=== PATIENT | male | born 1960 ===

== ENCOUNTER 2017-06-25 15:00 | Inpatient (IN) | payer OTHER ==
[~2017-06-25] VITALS: Ht 190.5 cm; Wt 108.2 kg
[2017-06-25] VITALS (8 sets, daily range): BP systolic 112–168; BP diastolic 74–114
[2017-06-25 15:47] LABS: BASOPHILS % (AUTO) 0.3 % (0-1); EOSINOPHILS # (AUTO) 0.1 X10'3 (0-0.9); EOSINOPHILS % (AUTO) 1.1 % (0-6); HEMATOCRIT 38.6 % (42.0-52.0); HEMOGLOBIN 12.6 g/dl (14.0-17.9); LYMPHOCYTES # (AUTO) 3.7 X10'3 (1.1-4.8); MEAN CORPUSCULAR HEMOGLOBIN 29.4 PG (27.0-31.0); MEAN CORPUSCULAR HGB CONC 32.6 % (33.0-36.5); MEAN CORPUSCULAR VOLUME 90.4 FL (78-98); MEAN PLATELET VOLUME 9.8 FL (7.4-10.4); MONOCYTES # (AUTO) 0.6 X10'3 (0-0.9); MONOCYTES % (AUTO) 4.9 % (2-12); NEUTROPHILS # (AUTO) 8.2 X10'3 (1.8-7.7); NEUTROPHILS % (AUTO) 64.7 % (42-75); PLATELET COUNT 138 X10'3 (140-440); RED BLOOD COUNT 4.28 X10'6 (4.70-6.10); RED CELL DISTRIBUTION WIDTH 14.8 % (11.5-14.5); WHITE BLOOD COUNT 12.8 X10'3 (4.5-11.0)
[2017-06-25 15:55] LABS: INR 1.4 INR; PROTHROMBIN TIME 14.8 SECONDS (9.0-12.0)
[2017-06-25 16:14] LABS: ALANINE AMINOTRANSFERASE 68 U/L (12-78); ALBUMIN 2.4 G/DL (3.4-5.0); ALBUMIN/GLOBULIN RATIO 0.9 (1.1-1.5); ALKALINE PHOSPHATASE 58 IU/L (46-116); ANION GAP 24 (8-16); ASPARTATE AMINO TRANSFERASE 62 U/L (10-37); BILIRUBIN,TOTAL 0.2 MG/DL (0.1-1.0); BLOOD UREA NITROGEN 19 MG/DL (7-18); BUN/CREATININE RATIO 8.2 (5.4-32.0); CALCIUM 10.6 MG/DL (8.5-10.1); CHLORIDE 106 MMOL/L (99-107); CREATININE 2.32 MG/DL (0.60-1.10); GLUCOSE 323 MG/DL (70-104); MAGNESIUM 3.3 MG/DL (1.5-2.4); SODIUM 145 MMOL/L (135-145); TOTAL PROTEIN 5.1 G/DL (6.4-8.2); eGFR 29 ML/MIN
[2017-06-25 16:17] LABS: TOTAL CARBON DIOXIDE 14.6 MMOL/L (24-32)
[2017-06-25 16:18] LABS: POTASSIUM 3.4 MMOL/L (3.5-5.1)
[2017-06-25] MEDS ORDERED: sodium phosphate inj. 15 MMOL in dextrose 5%-water 150 ML IV PRN (16:45)
[2017-06-25] MEDS ORDERED: magnesium 2GM in 50ml NS 50 ML IV PRN (16:45)
[2017-06-25] MEDS ORDERED: potassium Cl 40MEQ/NS 500ml 500 ML IV PRN ×2 (16:45)
[2017-06-25] MEDS ORDERED: sodium phosphate inj. 30 MMOL in dextrose 5%-water 250 ML IV PRN (16:45)
[2017-06-25] MEDS ORDERED: magnesium 4gm in 100ml NS 100 ML IV PRN (16:45)
[2017-06-25] MEDS ORDERED: potassium Cl 40MEQ/250ML bag 250 ML IV PRN ×2 (16:45)
[2017-06-25] MEDS ORDERED: CISatracurium **Bolus** 2 mg/ml inj IV PRN (16:50)
[2017-06-25] MEDS ORDERED: CISatracurium besylate inj. 200 MG in normal saline 250ml IV soln 180 ML IV PRN (16:50)
[2017-06-25] MEDS ORDERED: midazolam 2 mg/2 ml injection IV ONE (17:00)
[2017-06-25] MEDS ORDERED: FENTANYL-0.9 % NACL/PF 100 ML IV PRN (17:00)
[2017-06-25] MEDS ORDERED: midazolam 100mg in NS 100ml 100 ML IV PRN (17:00)
[2017-06-25] MEDS ORDERED: fentaNYL/PF 50MCG/1 ML 2ML syringe IV PRN (17:00)
[2017-06-25] MEDS: K, MAG and/or Phos replacement - Verify level? MC SCH (17:19)
[2017-06-25] MEDS: pantoprazole 40 MG vial IV SCH (17:27)
[2017-06-25 17:40] LABS: ABG BASE EXCESS -7.2 mmol/L (-2.0-3.0); ABG HCO3 18.6 mmol/L (22.0-26.0); ABG OXYGEN SATURATION 99.1 % (95-98); ABG PCO2 (T) 36.8 mmHg (35.0-48.0); ABG PH (T) 7.316 (7.350-7.450); ABG PO2 (T) 209.9 mmHg (83-108); FMetHb 0.3 % (0.3-1.12); FO2Hb 97.8 % (94-100); MINUTE VOLUME 16 L/min; PEEP 5 cm H2O; RESPIRATORY RATE 18 b/min; RESPIRATORY RATE (OBSERVED) 28 b/min; TIDAL VOLUME 450 mL; TOTAL HEMOGLOBIN 16.2 G/dl (14.0-18.0)
[2017-06-25] MEDS ORDERED: morphine 4 MG/ML inj SYRINge IV STA (18:10)
[2017-06-25] MEDS ORDERED: amiodarone 150mg/dext, iso-os 100 ML IV ONE ×2 (18:24→18:30)
[2017-06-25] MEDS ORDERED: amiodarone/D5 360MG/200ML BAG 200 ML IV SCH (18:25)
[2017-06-25] MEDS ORDERED: amiodarone/D5 360MG/200ML BAG 200 ML IV ONE (18:25)
[2017-06-25] MEDS: azithromycin/NS 500mg/250ml 250 ML IV SCH (19:00)
[2017-06-25 19:36] LABS: CLARITY,URINE SLIGHTLY CLOUDY (Clear); COLOR,URINE YELLOW (Yellow); GLUCOSE, URINE NEGATIVE (Neg); KETONES,URINE NEGATIVE (Neg); LEUKOCYTE ESTERASE ,URINE NEGATIVE (Neg); NITRITES, URINE NEGATIVE (Neg); OCCULT BLOOD,URINE LARGE (Neg); PH,URINE 5.5 (4.8-8.0); PROTEIN,URINE 100 mg/dl (Neg); UROBILINOGEN,URINE 0.2 E.U/dL (0.2-1.0)
[2017-06-25 19:43] LABS: UA COLLECTION TYPE FOLEY CATH
[2017-06-25 19:45] LABS: AMORPHOUS URATES 2+; BACTERIA,URINE FEW /HPF (Neg); COARSE GRANULAR CAST 0-3 /LPF (NEGATIVE); SQUAMOUS EPITHELIAL CELL,UR FEW /LPF (FEW); URINE AMPHETAMINE SCREEN POSITIVE (Neg); URINE BARBITUATE SCREEN NEGATIVE (Neg); URINE BENZODIAZEPINES SCREEN POSITIVE (Neg); URINE CANNABINOID SCREEN NEGATIVE (Neg); URINE COCAINE SCREEN NEGATIVE (Neg); URINE METHADONE SCREEN NEGATIVE (Neg); URINE OPIATE SCREEN POSITIVE (Neg); URINE PHENCYCLIDINE SCREEN NEGATIVE (Neg); WBC,URINE NONE SEEN /HPF (0-4)
[2017-06-25] MEDS: CISatracurium besylate inj. 200 MG in dextrose 5%-water 180 ML IV PRN (19:48)
[2017-06-25] MEDS ORDERED: nitroGLYCERIN-Tridil 50MG/D5W 250 ML IV PRN (20:13)
[2017-06-25] MEDS ORDERED: nitroGLYCERIN-Tridil 50MG/D5W 250 ML IV ONE (20:15)
[2017-06-25 21:55] LABS: ABG BASE EXCESS -8.5 mmol/L (-2.0-3.0); ABG OXYGEN SATURATION 94.2 % (95-98); ABG PCO2 (T) 52.9 mmHg (35.0-48.0); ABG PH (T) 7.201 (7.350-7.450); ABG PO2 (T) 73.4 mmHg (83-108); FCOHb 0.7 % (0.5-1.5); FMetHb 0.2 % (0.3-1.12); FO2Hb 93.4 % (94-100); MINUTE VOLUME 7 L/min; PATIENT TEMPERATURE 34.4; PEEP 5 cm H2O; RESPIRATORY RATE 14 b/min; RESPIRATORY RATE (OBSERVED) 14 b/min; TIDAL VOLUME 450 mL; TOTAL HEMOGLOBIN 16.2 G/dl (14.0-18.0)
[2017-06-25 22:11] LABS: ALBUMIN 3.3 G/DL (3.4-5.0); ANION GAP 12 (8-16); BLOOD UREA NITROGEN 25 MG/DL (7-18); BUN/CREATININE RATIO 16.2 (5.4-32.0); CALCIUM 8.7 MG/DL (8.5-10.1); CHLORIDE 107 MMOL/L (99-107); CREATININE 1.54 MG/DL (0.60-1.10); GLUCOSE 189 MG/DL (70-104); MAGNESIUM 2.6 MG/DL (1.5-2.4); PHOSPHORUS 6.3 MG/DL (2.3-4.5); POTASSIUM 3.7 MMOL/L (3.5-5.1); SODIUM 143 MMOL/L (135-145); TOTAL CARBON DIOXIDE 23.7 MMOL/L (24-32); eGFR 47 ML/MIN
[2017-06-25] MEDS ORDERED: insulin R INFUSION 1 ML IV ONE (22:50)
[2017-06-25] MEDS ORDERED: potassium Cl 40MEQ/250ML bag 250 ML IV ONE (22:50)
[2017-06-25] MEDS ORDERED: DOPamine 400mg/D5W 250ml 250 ML IV PRN (23:10)
[2017-06-25] MEDS ORDERED: DOBUTamine-DoBUTrex 500mg/D5W 250 ML IV PRN (23:10)
[2017-06-25] MEDS: mineral oil/petrolatum ophthal oint OP SCH (23:17)
[2017-06-25] MEDS ORDERED: DOBUTamine-DoBUTrex 500mg/D5W 250 ML IV ONE (23:17)
[2017-06-25] MEDS ORDERED: DOPamine 400mg/D5W 250ml 250 ML IV ONE (23:17)
[2017-06-26] VITALS (25 sets, daily range): BP systolic 61–110; BP diastolic 36–58
[2017-06-26] MEDS ORDERED: amiodarone/D5 360MG/200ML BAG 200 ML IV ONE ×2 (00:24→08:00)
[2017-06-26] MEDS ORDERED: DOBUTamine-DoBUTrex 500mg/D5W 250 ML IV PRN (00:30)
[2017-06-26] MEDS ORDERED: NORepinephrine 8mg/ 250ml NS 250 ML IV ONE (00:35)
[2017-06-26] MEDS: NORepinephrine 8mg/ 250ml NS 250 ML IV PRN ×4 (00:43→21:39)
[2017-06-26] MEDS: mineral oil/petrolatum ophthal oint OP SCH ×4 (00:44→11:05)
[2017-06-26] MEDS: amiodarone/D5 360MG/200ML BAG 200 ML IV SCH ×3 (00:45→21:39)
[2017-06-26 01:11] LABS: ABG BASE EXCESS -12.6 mmol/L (-2.0-3.0); ABG HCO3 17.4 mmol/L (22.0-26.0); ABG OXYGEN SATURATION 83.6 % (95-98); ABG PCO2 (T) 41.4 mmHg (35.0-48.0); ABG PH (T) 7.198 (7.350-7.450); FCOHb 0.6 % (0.5-1.5); FMetHb 0.1 % (0.3-1.12); MINUTE VOLUME 9 L/min; PEEP 5 cm H2O; RESPIRATORY RATE 18 b/min; RESPIRATORY RATE (OBSERVED) 18 b/min; TIDAL VOLUME 450 mL; TOTAL HEMOGLOBIN 15.2 G/dl (14.0-18.0)
[2017-06-26] MEDS ORDERED: sodium bicarbonate (8.4%) 1 mEq/ml syringe ONE ×2 (01:16→05:40)
[2017-06-26] MEDS ORDERED: sodium bicarbonate (8.4%) 1 mEq/ml syringe IV ONE ×2 (01:20→05:30)
[2017-06-26] MEDS ORDERED: dextrose 50%-water 50ml dispensing syringe IV PRN (01:45)
[2017-06-26] MEDS ORDERED: insulin Lispro (HumaLOG) vial - multi-dose SQ PRN (01:45)
[2017-06-26] MEDS: insulin regular, human 100 UNITS in normal saline 100ml IV soln 99 ML IV SCH ×6 (02:21→21:42)
[2017-06-26 03:45] LABS: HEMATOCRIT 41.7 % (42.0-52.0); HEMOGLOBIN 14.1 g/dl (14.0-17.9); MEAN CORPUSCULAR HEMOGLOBIN 30.3 PG (27.0-31.0); MEAN CORPUSCULAR HGB CONC 33.9 % (33.0-36.5); MEAN CORPUSCULAR VOLUME 89.4 FL (78-98); PLATELET COUNT 147 X10'3 (140-440); RED BLOOD COUNT 4.67 X10'6 (4.70-6.10); RED CELL DISTRIBUTION WIDTH 15.2 % (11.5-14.5); WHITE BLOOD COUNT 13.6 X10'3 (4.5-11.0)
[2017-06-26 03:46] LABS: BASOPHILS % (AUTO) 0 % (0-1); EOSINOPHILS # (AUTO) 0.1 X10'3 (0-0.9); EOSINOPHILS % (AUTO) 1.1 % (0-6); LYMPHOCYTES # (AUTO) 0.6 X10'3 (1.1-4.8); LYMPHOCYTES % (AUTO) 4.6 % (21-51); MEAN PLATELET VOLUME 9.6 FL (7.4-10.4); MONOCYTES # (AUTO) 0.3 X10'3 (0-0.9); MONOCYTES % (AUTO) 2.3 % (2-12); NEUTROPHILS # (AUTO) 12.5 X10'3 (1.8-7.7)
[2017-06-26 03:57] LABS: INR 1.5 INR; PARTIAL THROMBOPLASTIN TIME 32 SECONDS (22-32); PROTHROMBIN TIME 15.2 SECONDS (9.0-12.0)
[2017-06-26] MEDS ORDERED: DOPamine 400mg/D5W 250ml 250 ML IV ONE ×5 (04:08→19:55)
[2017-06-26] MEDS: DOBUTamine-DoBUTrex 500mg/D5W 250 ML IV PRN ×3 (04:12→21:38)
[2017-06-26] MEDS: DOPamine 400mg/D5W 250ml 250 ML IV PRN ×4 (04:12→23:19)
[2017-06-26 04:25] LABS: ABG BASE EXCESS -12.8 mmol/L (-2.0-3.0); ABG HCO3 16.8 mmol/L (22.0-26.0); ABG OXYGEN SATURATION 89.1 % (95-98); ABG PCO2 (T) 39.3 mmHg (35.0-48.0); ABG PH (T) 7.206 (7.350-7.450); ABG PO2 (T) 44.3 mmHg (83-108); FCOHb 0.4 % (0.5-1.5); FMetHb 0.1 % (0.3-1.12); FO2Hb 88.7 % (94-100); MINUTE VOLUME 10 L/min; PATIENT TEMPERATURE 30.1; PEEP 5 cm H2O; RESPIRATORY RATE 20 b/min; RESPIRATORY RATE (OBSERVED) 20 b/min; TIDAL VOLUME 450 mL; TOTAL HEMOGLOBIN 14.7 G/dl (14.0-18.0)
[2017-06-26 04:34] LABS: ALANINE AMINOTRANSFERASE 115 U/L (12-78); ALBUMIN 2.7 G/DL (3.4-5.0); ALBUMIN/GLOBULIN RATIO 0.9 (1.1-1.5); ALKALINE PHOSPHATASE 55 IU/L (46-116); ANION GAP 19 (8-16); ASPARTATE AMINO TRANSFERASE 364 U/L (10-37); BILIRUBIN,TOTAL 0.4 MG/DL (0.1-1.0); BLOOD UREA NITROGEN 30 MG/DL (7-18); BUN/CREATININE RATIO 12.9 (5.4-32.0); CALCIUM 8.3 MG/DL (8.5-10.1); CHLORIDE 107 MMOL/L (99-107); CREATININE 2.32 MG/DL (0.60-1.10); GLUCOSE 283 MG/DL (70-104); MAGNESIUM 2.4 MG/DL (1.5-2.4); PHOSPHORUS 5.5 MG/DL (2.3-4.5); SODIUM 145 MMOL/L (135-145); TOTAL CARBON DIOXIDE 18.7 MMOL/L (24-32); TOTAL PROTEIN 5.6 G/DL (6.4-8.2); eGFR 29 ML/MIN
[2017-06-26] MEDS ORDERED: potassium Cl 40MEQ/250ML bag 250 ML IV ONE (05:04)
[2017-06-26 05:25] LABS: CKMB RELATIVE INDEX 23.9 RATIO (0-2.5); CREATINE KINASE 3049 U/L (39-308)
[2017-06-26] MEDS: methylPREDNISolone sod succ 125mg/2ml vial IV SCH ×4 (06:32→23:23)
[2017-06-26] MEDS: azithromycin/NS 500mg/250ml 250 ML IV SCH (07:36)
[2017-06-26] MEDS: K, MAG and/or Phos replacement - Verify level? MC SCH (07:37)
[2017-06-26] MEDS: pantoprazole 40 MG vial IV SCH (07:37)
[2017-06-26] MEDS ORDERED: aspirin 81mg tab.chew NG SCH (08:30)
[2017-06-26] MEDS ORDERED: NO HOME MEDS (08:50)
[2017-06-26 11:36] LABS: ABG BASE EXCESS -10.3 mmol/L (-2.0-3.0); ABG HCO3 18.6 mmol/L (22.0-26.0); ABG OXYGEN SATURATION 96.8 % (95-98); ABG PCO2 (T) 52.7 mmHg (35.0-48.0); ABG PH (T) 7.165 (7.350-7.450); ABG PO2 (T) 104.6 mmHg (83-108); FCOHb 0.1 % (0.5-1.5); FMetHb 0.1 % (0.3-1.12); FO2Hb 96.6 % (94-100); MINUTE VOLUME 10 L/min; PEEP 8 cm H2O; RESPIRATORY RATE 20 b/min; RESPIRATORY RATE (OBSERVED) 20 b/min; TIDAL VOLUME 450 mL; TOTAL HEMOGLOBIN 14.7 G/dl (14.0-18.0)
[2017-06-26 11:36] LABS: OXYGEN SATURATION (MIXED VEN) 85.2 % (60-80)
[2017-06-26 12:29] LABS: BASOPHILS % (AUTO) 0 % (0-1); EOSINOPHILS # (AUTO) 0.1 X10'3 (0-0.9); EOSINOPHILS % (AUTO) 1.1 % (0-6); HEMATOCRIT 42.8 % (42.0-52.0); HEMOGLOBIN 14.2 g/dl (14.0-17.9); LYMPHOCYTES # (AUTO) 0.5 X10'3 (1.1-4.8); LYMPHOCYTES % (AUTO) 5.5 % (21-51); MEAN CORPUSCULAR HEMOGLOBIN 29.7 PG (27.0-31.0); MEAN CORPUSCULAR VOLUME 89.8 FL (78-98); MEAN PLATELET VOLUME 9.7 FL (7.4-10.4); MONOCYTES # (AUTO) 0.3 X10'3 (0-0.9); MONOCYTES % (AUTO) 3.4 % (2-12); NEUTROPHILS # (AUTO) 8.3 X10'3 (1.8-7.7); PLATELET COUNT 131 X10'3 (140-440); RED BLOOD COUNT 4.77 X10'6 (4.70-6.10); RED CELL DISTRIBUTION WIDTH 14.8 % (11.5-14.5); WHITE BLOOD COUNT 9.2 X10'3 (4.5-11.0)
[2017-06-26] MEDS ORDERED: vasopressin inj. 60 UNIT in normal saline 100ml IV soln 97 ML IV SCH (12:50)
[2017-06-26 12:56] LABS: ALANINE AMINOTRANSFERASE 121 U/L (12-78); ALBUMIN 2.5 G/DL (3.4-5.0); ALBUMIN/GLOBULIN RATIO 0.9 (1.1-1.5); ALKALINE PHOSPHATASE 52 IU/L (46-116); ANION GAP 18 (8-16); ASPARTATE AMINO TRANSFERASE 418 U/L (10-37); BILIRUBIN,TOTAL 0.5 MG/DL (0.1-1.0); BLOOD UREA NITROGEN 35 MG/DL (7-18); BUN/CREATININE RATIO 14.1 (5.4-32.0); CALCIUM 7.5 MG/DL (8.5-10.1); CHLORIDE 107 MMOL/L (99-107); CREATININE 2.49 MG/DL (0.60-1.10); GLUCOSE 159 MG/DL (70-104); MAGNESIUM 2.3 MG/DL (1.5-2.4); SODIUM 144 MMOL/L (135-145); TOTAL PROTEIN 5.3 G/DL (6.4-8.2); eGFR 27 ML/MIN
[2017-06-26 12:58] LABS: INR 1.3 INR; PROTHROMBIN TIME 13.7 SECONDS (9.0-12.0)
[2017-06-26 12:59] LABS: POTASSIUM 2.5 MMOL/L (3.5-5.1)
[2017-06-26 13:09] LABS: PARTIAL THROMBOPLASTIN TIME 87 SECONDS (22-32)
[2017-06-26] MEDS: CISatracurium besylate inj. 200 MG in dextrose 5%-water 180 ML IV PRN (15:22)
[2017-06-26] MEDS: normal saline 1000ml 1,000 ML IV SCH ×2 (17:29→23:19)
[2017-06-26 17:51] LABS: ABG BASE EXCESS -11.6 mmol/L (-2.0-3.0); ABG HCO3 16.8 mmol/L (22.0-26.0); ABG OXYGEN SATURATION 91.5 % (95-98); ABG PCO2 (T) 34.8 mmHg (35.0-48.0); ABG PO2 (T) 42.9 mmHg (83-108); FCOHb 0.2 % (0.5-1.5); FMetHb 0.1 % (0.3-1.12); FO2Hb 91.2 % (94-100); MINUTE VOLUME 12 L/min; PEEP 8 cm H2O; RESPIRATORY RATE 24 b/min; RESPIRATORY RATE (OBSERVED) 24 b/min; TIDAL VOLUME 450 mL; TOTAL HEMOGLOBIN 14.3 G/dl (14.0-18.0)
[2017-06-26 17:56] LABS: OXYGEN SATURATION (MIXED VEN) 74.4 % (60-80); PO2 MIXED VENOUS (TEMP COR) 26.2 mmHg (35-46)
[2017-06-26 19:38] LABS: INR 1.2 INR; PROTHROMBIN TIME 12.6 SECONDS (9.0-12.0)
[2017-06-26] MEDS: mineral oil/petrolatum ophthal oint EACHEYE SCH (20:05)
[2017-06-26 20:16] LABS: ALANINE AMINOTRANSFERASE 123 U/L (12-78); ALBUMIN 2.4 G/DL (3.4-5.0); ALBUMIN/GLOBULIN RATIO 0.9 (1.1-1.5); ALKALINE PHOSPHATASE 50 IU/L (46-116); ANION GAP 16 (8-16); ASPARTATE AMINO TRANSFERASE 423 U/L (10-37); BILIRUBIN,TOTAL 0.5 MG/DL (0.1-1.0); BLOOD UREA NITROGEN 35 MG/DL (7-18); BUN/CREATININE RATIO 13.8 (5.4-32.0); CALCIUM 7.5 MG/DL (8.5-10.1); CHLORIDE 107 MMOL/L (99-107); CREATININE 2.54 MG/DL (0.60-1.10); GLUCOSE 197 MG/DL (70-104); MAGNESIUM 1.9 MG/DL (1.5-2.4); SODIUM 142 MMOL/L (135-145); TOTAL CARBON DIOXIDE 19.1 MMOL/L (24-32); TOTAL PROTEIN 5.1 G/DL (6.4-8.2); eGFR 27 ML/MIN
[2017-06-26 20:18] LABS: CKMB RELATIVE INDEX 34.1 RATIO (0-2.5); CREATINE KINASE 3415 U/L (39-308)
[2017-06-26 20:25] LABS: PARTIAL THROMBOPLASTIN TIME 86 SECONDS (22-32)
[2017-06-26 21:01] LABS: POTASSIUM 2.4 MMOL/L (3.5-5.1)
[2017-06-26 21:02] LABS: TROPONIN I 35.45 NG/ML (0.0-0.05)
[2017-06-27] VITALS (9 sets, daily range): BP systolic 73–107; BP diastolic 43–56
[2017-06-27 01:35] LABS: ABG BASE EXCESS -6.6 mmol/L (-2.0-3.0); ABG HCO3 20.9 mmol/L (22.0-26.0); ABG OXYGEN SATURATION 90.9 % (95-98); ABG PCO2 (T) 39.6 mmHg (35.0-48.0); ABG PH (T) 7.313 (7.350-7.450); ABG PO2 (T) 44.5 mmHg (83-108); FCOHb 0.1 % (0.5-1.5); FMetHb 0.1 % (0.3-1.12); FO2Hb 90.7 % (94-100); MINUTE VOLUME 11 L/min; PATIENT TEMPERATURE 32.1; PEEP 8 cm H2O; RESPIRATORY RATE 24 b/min; RESPIRATORY RATE (OBSERVED) 24 b/min; TIDAL VOLUME 450 mL; TOTAL HEMOGLOBIN 14.5 G/dl (14.0-18.0)
[2017-06-27] MEDS: mineral oil/petrolatum ophthal oint EACHEYE SCH (02:16)
[2017-06-27 02:47] LABS: BASOPHILS % (AUTO) 0.3 % (0-1); EOSINOPHILS % (AUTO) 0 % (0-6); HEMOGLOBIN 13.5 g/dl (14.0-17.9); LYMPHOCYTES # (AUTO) 1.3 X10'3 (1.1-4.8); LYMPHOCYTES % (AUTO) 13.7 % (21-51); MEAN CORPUSCULAR HEMOGLOBIN 29.4 PG (27.0-31.0); MEAN CORPUSCULAR HGB CONC 32.9 % (33.0-36.5); MEAN CORPUSCULAR VOLUME 89.3 FL (78-98); MEAN PLATELET VOLUME 9.9 FL (7.4-10.4); MONOCYTES # (AUTO) 0.6 X10'3 (0-0.9); MONOCYTES % (AUTO) 5.8 % (2-12); NEUTROPHILS # (AUTO) 7.8 X10'3 (1.8-7.7); NEUTROPHILS % (AUTO) 80.2 % (42-75); PLATELET COUNT 119 X10'3 (140-440); RED CELL DISTRIBUTION WIDTH 14.9 % (11.5-14.5); WHITE BLOOD COUNT 9.8 X10'3 (4.5-11.0)
[2017-06-27 03:02] LABS: INR 1.1 INR; PROTHROMBIN TIME 11.8 SECONDS (9.0-12.0)
[2017-06-27] MEDS: DOBUTamine-DoBUTrex 500mg/D5W 250 ML IV PRN (03:13)
[2017-06-27] MEDS: DOPamine 400mg/D5W 250ml 250 ML IV PRN (03:14)
[2017-06-27 03:42] LABS: ALANINE AMINOTRANSFERASE 126 U/L (12-78); ALBUMIN 2.4 G/DL (3.4-5.0); ALBUMIN/GLOBULIN RATIO 0.9 (1.1-1.5); ALKALINE PHOSPHATASE 46 IU/L (46-116); ANION GAP 12 (8-16); ASPARTATE AMINO TRANSFERASE 409 U/L (10-37); BILIRUBIN,TOTAL 0.5 MG/DL (0.1-1.0); BLOOD UREA NITROGEN 36 MG/DL (7-18); CALCIUM 7.3 MG/DL (8.5-10.1); CHLORIDE 106 MMOL/L (99-107); CREATININE 2.25 MG/DL (0.60-1.10); GLUCOSE 109 MG/DL (70-104); PHOSPHORUS 2.4 MG/DL (2.3-4.5); SODIUM 140 MMOL/L (135-145); TOTAL CARBON DIOXIDE 21.8 MMOL/L (24-32); TOTAL PROTEIN 5.1 G/DL (6.4-8.2); eGFR 30 ML/MIN
[2017-06-27 03:54] LABS: CREATINE KINASE 3598 U/L (39-308); POTASSIUM 2.6 MMOL/L (3.5-5.1); TROPONIN I 27.56 NG/ML (0.0-0.05)
[2017-06-27 04:18] LABS: CKMB RELATIVE INDEX 35.5 RATIO (0-2.5)
[2017-06-27] MEDS: NORepinephrine 8mg/ 250ml NS 250 ML IV PRN (05:20)
== END 2017-06-27 12:54 | disposition expired | DRG 208 ==
LOC: EDBD 15:00 → ER 15:00 → ICU 2S 16:42
PROVIDERS: ADMIT Internal Medicine Critical Care Medicine
PROC: 5A1945Z Respiratory Ventilation, 24-96 Consecutive Hours (ICD-10-PCS; principal; 2017-06-25)
PROC: 0BH17EZ Insertion of Endotracheal Airway into Trachea, Via Natural or Artificial Opening (ICD-10-PCS; 2017-06-25)
PROC: 5A12012 Performance of Cardiac Output, Single, Manual (ICD-10-PCS; 2017-06-25)
PROC: 02HV33Z Insertion of Infusion Device into Superior Vena Cava, Percutaneous Approach (ICD-10-PCS; 2017-06-25)
PROC: 04HY32Z Insertion of Monitoring Device into Lower Artery, Percutaneous Approach (ICD-10-PCS; 2017-06-25)
PROC: 3E04317 Introduction of Other Thrombolytic into Central Vein, Percutaneous Approach (ICD-10-PCS; 2017-06-25)
PROC: 4A10X4Z Monitoring of Central Nervous Electrical Activity, External Approach (ICD-10-PCS; 2017-06-26)
DX: J96.01 Acute respiratory failure with hypoxia (principal); R40.20 Unspecified coma; R57.0 Cardiogenic shock; I42.9 Cardiomyopathy, unspecified; I47.2 Ventricular tachycardia; F15.90 Other stimulant use, unspecified, uncomplicated; F17.210 Nicotine dependence, cigarettes, uncomplicated
CPT/HCPCS: 36415; 36556; 36600; 70450; 71045; 71250; 80048; 80053; 80305; 81001; 82330; 82550; 82553; 82803; 82810; 82948; 83605; 83735; 83880; 84100; 84145; 84443; 84484; 85018; 85025; 85610; 85730; 86885; 86900; 86901; 87040; 87070; 92960; 93005; 93308; 94002; 94003; 94760; 95816; 99291; 99292; A6213; A6257; C1758; C9113; J0282; J0456; J1250; J1265; J1644; J1815; J2250; J2270; J2930; J3480; J3490; J7030; J7060